=== PATIENT | male | born 1955 | race Caucasian/White ===

== ENCOUNTER → 2016-12-26 | Outpatient (CLI) | payer MEDICARE, OTHER ==
[~2016-12-26] MED LIST: ALBUTEROL17 GM INH; AMBIEN PO; AZULFIDINE PO; AZULFIDINE500 M1 PO; BACTRIM DS TABL1 TA1 PO; BACTRIM DS TABL1 TAB PO; BIAXIN PO; CREON DR 24,001 EACH PO; EC-NAPROSYN500 MG PO; FLAGYL PO; FOLIC ACID PO; HUMIBID DM1 CAP.SR . PO; HYDROCODONE-CH473 ML PO; KEFLEX; LIBRIUM25 MG PO; LISINOPRIL PO; LORTAB 10-5001 EACH PO; LORTAB 10/500 T1 TAB PO; LORTAB 101 TAB 10/5 PO; LYRICA PO; MAG-OXIDE400 MG PO; MOBIC PO; NEXIUM PO; PHENERGAN PO; PHYSICIANS1000 MCG/1 INJ; PREDNISONE PO; PROTONIX PO; PROVENTIL17 GM IH; SEREVENT DISKU50 MCG INH; TESSALON200 MG PO; THIAMINE HCL100 MG PO; VICODIN 5/500 T1 TAB PO; VIT B-12 PO; VITAMIN B IM; VITAMIN D PO; VITAMIN D2000 UNI1 PO; ZITHROMAX PO; [UNRECOGNIZED DRUG - OTHER]; [UNRECOGNIZED DRUG - OTHER] IM; [UNRECOGNIZED DRUG - REMARK]
--- NOTE | ~2016-12-26 | CT57 ---
[facility] A Service of [facility] & [facility] RADIOLOGY TEXT RESULTS PATIENT: MARIO MCFADDEN LOCATION: CCAT : 53 UNIT #: [id number] AGE: [address]: CLEO SANTACRUZ MD (INT MED) SEX: M ORDER DR: [id number] [facility] [address] [place], [place] [address] [id number] O MR#: [id number] Acc #: [id number] NAME: MARIO MCFADDEN : 1955 SEX: M STUDY DATE/TIME: 12/26/2016 13:21 [facility]: STUDY DESCRIPTION: CT Chest Wo Cont Attending Physician: Cleo Santacruz M.D. Referring Physician: Cleo Santacruz M.D. Ordering Physician: Cleo Santacruz M.D. Primary Care Physician: Cleo Santacruz M.D. MEDICAL IMAGING REPORT This report is preliminary unless electronic signature is present EXAM CT chest 12/26/2016 INDICATIONS Ascending thoracic aortic aneurysm without dissection. Peripheral edema. TECHNIQUE CT of the chest without contrast. This CT exam was performed with one or more of the following radiation dose reduction techniques: automatic exposure control, adjustment of mA and/or kV according to patient size, and iterative reconstruction. COMPARISON CT chest dated 03/18/2016 through 04/10/2015 FINDINGS Aortic root is at the upper limits of normal measuring 3.9 cm at the sinus of Valsalva and 2.7 cm at the sinotubular junction. Mid ascending thoracic aorta is dilated at 4.3 cm, unchanged from March 2015. The aortic tapers to normal caliber at the aortic arch. The descending thoracic aorta is normal in caliber measuring 2.9 cm. No pericardial or pleural effusion. The main pulmonary artery is normal in size. No enlarged mediastinal or hilar lymph nodes. No suspicious pulmonary findings. Central airways are patent. No focal consolidation. There is no acute osseous abnormalities. There is old fracture involving the right scapula and right ribs. IMPRESSION 4.3 cm mid ascending thoracic aorta is unchanged from 04/10/2015. [facility] A Service of [facility] & [facility] RADIOLOGY TEXT RESULTS PATIENT: MARIO MCFADDEN LOCATION: [facility] : 53 UNIT #: [id number] AGE: [address]: CLEO SANTACRUZ MD (INT MED) SEX: M ORDER DR: Dictated by... Tree Thornton M.D. THIS IS AN ELECTRONICALLY VERIFIED REPORT Tree Thornton M.D. at 12/27/2016 7:50 AM Cee TD: 12/26/2016 18:33 JOB #: [id number] MEDICAL IMAGING REPORT Page 1 of 1 COPY
== END | disposition home or self-care (01) ==
LOC: CCAT 13:00
DX: R60.0 Localized edema (principal); I71.2 Thoracic aortic aneurysm, without rupture
CPT/HCPCS: 71250; 93306

== ENCOUNTER → 2016-12-31 | Outpatient (CLI) | payer MEDICARE, OTHER ==
--- NOTE | ~2016-12-31 | XA51 ---
[facility] A Service of [place] & [facility] RADIOLOGY TEXT RESULTS PATIENT: MARIO MCFADDEN LOCATION: CIVR : 53 UNIT #: [id number] AGE: [address]: Rajiv Bella MD SEX: M ORDER DR: [id number] [facility] [address] [place], [place] [address] [id number] O MR#: [id number] Acc #: [id number] NAME: MARIO MCFADDEN : 1955 SEX: M STUDY DATE/TIME: 12/31/2016 9:55 UNIT: CIVR ROOM: STUDY DESCRIPTION: PATRICIA BX Bone Marrow Attending Physician: Rajiv Bella M.D. Ordering Physician: Rajiv Bella M.D. Primary Care Physician: Mitch Santacruz M.D. MEDICAL IMAGING REPORT This report is preliminary unless electronic signature is present EXAM Bone marrow aspiration and biopsy HISTORY Anemia. TECHNIQUE Procedure, attendant risks and options were discussed with the patient. He understands and wishes to proceed. The patient was placed in the prone position in the Angio Suite. An appropriate site was chosen over the right iliac crest, the skin was marked, subsequently prepped with chlorhexidine and draped. Conscious sedation was provided consisting of 4 mg of Versed and 100 mcg of fentanyl. The patient was monitored during the entire procedure. Total conscious sedation time 30 minutes. Utilizing maximal sterile barrier technique, including sterile gloves, a 11-St Helenian trocar was advanced through the posterior right iliac crest into the marrow space with a marrow aspirate performed. Bone marrow biopsy was then performed and the needle removed. A single spot radiograph was obtained, documenting placement. Total fluoroscopy time was 0.7 minutes. Total exposure 31 mGy air kerma standard. CONCLUSION Successful right iliac crest bone marrow aspiration and biopsy. Dictated by... Billy Lopez M.D. THIS IS AN ELECTRONICALLY VERIFIED REPORT Billy oLpez M.D. at 01/02/2017 2:20 PM KELLEY/glen TD: 12/31/2016 23:56 [facility] A Service of [place] & [facility] RADIOLOGY TEXT RESULTS PATIENT: MARIO MCFADDEN LOCATION: [facility] #: [id number] : 53 UNIT #: [id number] AGE: [address]: Rajiv Bella MD SEX: M ORDER DR: JOB #: [id number] MEDICAL IMAGING REPORT Page 1 of 1 COPY
[2016-12-31 08:35] LABS: HEMOGLOBIN 11.9 gm/dL (13.0-16.0); MEAN CELL VOLUME 107.8 FL (83-96); MEAN CORPUSCULAR HEMOGLOBIN 34.6 PG (28-34); MEAN CORPUSCULAR HGB CONC 32.1 g/dL (30-36); MEAN PLATELET VOLUME 7.2 FL (6.5-11.5); RED BLOOD COUNT 3.43 X10e (3.90-5.60); WHITE BLOOD COUNT 11.7 X10e3 (4.0-10.5)
[2016-12-31 08:44] LABS: INR 1.4; PROTHROMBIN TIME (PATIENT) 14.8 SECONDS (9.6-11.5)
== END | disposition home or self-care (01) ==
LOC: CSSDAY 08:07
PROVIDERS: Internal Medicine Medical Oncology
DX: D53.1 Other megaloblastic anemias, not elsewhere classified (principal)
CPT/HCPCS: 38221; G0364; 36415; 77002; 85027; 85610; 85730; 88305; 88311; 99144; 99152; 99153; J2250; J3010